=== PATIENT | male | born 1970 | race Caucasian/White ===

== ENCOUNTER 2023-02-13 09:19 | Outpatient (CLI) | payer OTHER ==
[2023-02-13] MEDS ORDERED: Iopamidol 370 76% 100 ML VIAL ONE (14:13)
== END 2023-02-13 09:20 | disposition home or self-care (01) ==
LOC: BICCT 09:19
PROVIDERS: ATTEND Physician Assistant Surgical
DX: I65.22 Occlusion and stenosis of left carotid artery (principal)
CPT/HCPCS: 70498; 82565; Q9967